=== PATIENT | female | born 1940 | race Hispanic/Latino ===

== ENCOUNTER 2019-07-09 12:44 | Emergency (ER) | payer MEDICARE | END 2019-07-09 15:55 | disposition home or self-care (01) | LOC: EDH 12:44 | DX: S13.8XXA Sprain of joints and ligaments of other parts of neck, initial encounter (principal); S23.3XXA Sprain of ligaments of thoracic spine, initial encounter; E11.9 Type 2 diabetes mellitus without complications; M25.561 Pain in right knee; M25.511 Pain in right shoulder; V49.49XA Driver injured in collision with other motor vehicles in traffic accident, initial encounter; Y93.89 Activity, other specified; Y92.89 Other specified places as the place of occurrence of the external cause; Y99.8 Other external cause status | CPT/HCPCS: 70450; 71250; 72125; 73060; 73562 ==